=== PATIENT | male | born 1975 | race Caucasian/White ===

== ENCOUNTER 2020-02-23 16:55 | Outpatient (CLI) | payer OTHER, SELFPAY ==
[2020-02-23 18:07] LABS: SARS-CoV-2 Ag Negative (Negative)
== END 2020-02-23 16:56 | disposition home or self-care (01) ==
PROVIDERS: PCP Family Medicine; Visit Provider Physician Assistant
DX: Z20.828 Contact with and (suspected) exposure to other viral communicable diseases (principal)
CPT/HCPCS: 87426

== ENCOUNTER 2020-04-08 17:10 | Outpatient (CLI) | payer OTHER, SELFPAY ==
[2020-04-08 18:18] LABS: SARS-CoV-2 Ag Positive (Negative)
[2020-04-10 17:28] LABS: SARS-CoV-2 RNA PCR Positive
== END 2020-04-08 17:11 | disposition home or self-care (01) ==
LOC: CHSLAB 17:14
PROVIDERS: PCP Family Medicine; Visit Provider Family Medicine
DX: U07.1 COVID-19 (principal)
CPT/HCPCS: 87426; C9803; U0003; U0005